=== PATIENT | male | born 1985 | race Caucasian/White ===

== ENCOUNTER 2017-10-13 06:57 | Emergency (ER) | payer SELFPAY ==
[~2017-10-13] VITALS: Ht 185.4 cm; Wt 111.1 kg
--- NOTE | 2017-10-13 07:16 | PHYS DOC ---
Past History Past Medical History: No Pertinent History Past Surgical History: No Surgical History Smoking: Cigarettes Alcohol Use: None Drug Use: None Adult General Chief Complaint Chief Complaint: ANKLE PROBLEM HPI HPI 32-year-old male who was jumping a "10 foot fence". He reports landing on his left lower extremity and injuring it. This occurred last night. He denies any other injuries. He has swelling and pain in the left ankle which is sharp shooting to throbbing moderate intermittent and without alleviating factors. It is associated with swelling. He denies any numbness or tingling in his foot. Review of systems is negative for knee pain or hip pain proximally. He denies any other injuries to his extremities. He denies chest pain abdominal pain head injury or loss of consciousness or neck pain. All other review of systems is negative unless otherwise noted in history of present illness. ED course: 32-year-old male presenting to the emergency department today with left lower ankle pain. X-rays were obtained. Pt is tachycardic likely 2/2 pain. Patient's heart rate came down appropriately with oral Tylenol. X-rays show no acute osseous fracture or dislocation. High-grade ankle sprain. Unfortunately I am unable to do a thorough ankle examination due to swelling and pain at this time. We will wrap the patient's ankle with an Prakash bandage and refer him to his primary care physician and/or an orthopedic surgeon in the next 3-4 days for repeat ankle examination and possible MRI/referral. In the interim we will use rice therapy.The patient has been examined and was not found to have an emergency medical condition. The patient was then discharged home in stable condition. They were to return if their symptoms worsened or if they were concerned for any reason. [id number] discharge instructions and return precautions were given. Patient's questions were answered to their satisfaction. Patient is comfortable with plan. Review of Systems Review of Systems SEE ABOVE. Physical Exam Physical Exam SEE ABOVE General Appearance alert, cooperative, no distress, responsive Head Normocephalic, without obvious abnormality, atraumatic Eyes conjunctivae/corneas clear. PERRL, EOM's intact. Throat no blood or lacerations, normal alignment Neck supple, symmetrical, trachea midline, cervical collar in place Back/Spine symmetric, normal curvature. ROM normal, no abrasions, no tenderness to palpation, no step-offs Lungs clear to auscultation bilaterally Chest Wall normal ribcage without tenderness to palpation, crepitus or emphysema Heart reg rate and regular rhythm, S1, S2 normal, no murmur, click, rub or gallop Abdomen soft, non-tender. Bowel sounds normal. No masses, no organomegaly Pelvic stable Extremities Left leg has no tenderness palpation in the hip or knee with good range of motion in both joints. Positive for ecchymosis and swelling of the ankle. He fires the TA, EH, FHL and Gastrocnemius soleus complex. Normal sensation in the deep peroneal, superficial peroneal, Sural, saphenous, medial and lateral tibial and calcaneal sensory nerves in the foot. 2+ PT and DP pulse. No pain to palpation at the base of the fifth metatarsal. There is not any lacerations or abrasions of the skin. Pulses 2+ and symmetric Skin Skin color, texture, turgor normal. No rashes or lesions Neurologic Grossly normal Eye opening: (4) spontaneous Best motor response: (6) obeys verbal command Best verbal response: (5) oriented and converses Total Rice (E + M + V) = 15 EKG EKG [] Radiology/Procedures Radiology/Procedures [] Course & Med Decision Making Course & Med Decision Making Pertinent Labs and Imaging studies reviewed. (See chart for details) [] Dragon Disclaimer Dragon Disclaimer This electronic medical record was generated, in whole or in part, using a voice recognition dictation system. Departure Departure: Impression: Primary Impression: Left ankle injury Disposition: 01 HOME, SELF-CARE Condition: STABLE Referrals: PCP,NO (PCP) Patient Instructions: Ankle Sprain Additional Instructions: Thank you for allowing us to participate in your care today. Followup with your primary care physician or our orthopedic surgeon in 4-5 days for repeat ankle exam. Call your Primary Doctor tomorrow and inform them of your visit today. If you do not have a primary care provider you can ask for a list of our primary care providers. Return to the emergency department you have any new or concerning findings. Dr. Quintanilla Address: [address], [place] [address] This should be evaluated by the primary care physician and any necessary consulting services for continued management within a few days after discharge. Return to emergency room if you have any new or concerning symptoms including but not limited to fever, chills, nausea, vomiting, intractable pain, any new rashes, chest pain, shortness of air, uncontrolled bleeding, difficulty breathing, and/or vision loss. If at any time, you are having difficulty getting into your primary care doctor or a specialist, return to the emergency department. You may have been prescribed medication or given medication in the emergency department that can change in your level of thinking and ability to operate machinery. These medications include hydrocodone, Ativan, Benadryl. Be sure to check with your pharmacist and ask if the medications you've prescribed can affect your level of consciousness. I recommend not operating heavy machinery or driving while on medication such as these. Scripts Hydrocodone Bit/Acetaminophen (HYDROCODONE-APAP 5-325 ) 1 Each Tablet 1 TAB PO PRN Q6HRS PRN for PAIN, #10 TAB 0 Refills Prov: ARACELIS CROWE MD 10/13/17 ARACELIS CROWE MD October 13, 2017 07:16
--- NOTE | 2017-10-13 07:39 | RAD ---
History: Injury, pain and swelling. Comparison: None. Findings: AP and lateral views of the left tibia and fibula, 4 images. No acute fracture or acute malalignment is identified. Small soft tissue calcification involves the anterior mid lower leg soft tissues. There is diffuse soft tissue swelling of the distal lower leg. AP, lateral, and oblique views of the left ankle. No acute fracture or dislocation is identified. Diffuse ankle soft tissue swelling is seen. Impression: No acute osseous traumatic injury identified in the left tibia and fibula or left ankle. Electronically signed by: Zachary Minaya MD (10/13/2017 7:35 AM) [facility]
--- NOTE | 2017-10-13 07:39 | RAD ---
History: Injury, pain and swelling. Comparison: None. Findings: AP and lateral views of the left tibia and fibula, 4 images. No acute fracture or acute malalignment is identified. Small soft tissue calcification involves the anterior mid lower leg soft tissues. There is diffuse soft tissue swelling of the distal lower leg. AP, lateral, and oblique views of the left ankle. No acute fracture or dislocation is identified. Diffuse ankle soft tissue swelling is seen. Impression: No acute osseous traumatic injury identified in the left tibia and fibula or left ankle. Electronically signed by: Zachary Minaya MD (10/13/2017 7:35 AM) [facility]
[2017-10-13] MEDS ORDERED: ACETAMINOPHEN 325 MG TABLET PO ONE (07:45)
[2017-10-13] MEDS ORDERED: HYDR-2758 PO (07:51)
[2017-10-13 07:53] VITALS: BP 141/101
== END 2017-10-13 07:55 | disposition home or self-care (01) ==
LOC: ER 06:57
DX: S99.912A Unspecified injury of left ankle, initial encounter (principal); X50.9XXA Other and unspecified overexertion or strenuous movements or postures, initial encounter; Y93.39 Activity, other involving climbing, rappelling and jumping off; Y99.8 Other external cause status; Y92.89 Other specified places as the place of occurrence of the external cause
CPT/HCPCS: 73590; 73610; 99284

== ENCOUNTER 2017-10-15 17:27 | Emergency (ER) | payer SELFPAY ==
[~2017-10-15] VITALS: Ht 185.4 cm; Wt 110.2 kg
[~2017-10-15 17:27] MED LIST: HYDR-2758 PO
[2017-10-15 17:41] VITALS: BP 140/84
--- NOTE | 2017-10-15 18:13 | PHYS DOC ---
Past History Past Medical History: No Pertinent History Past Surgical History: No Surgical History Smoking: Cigarettes Alcohol Use: None Drug Use: None Adult General Chief Complaint Chief Complaint: ANKLE PROBLEM HPI HPI 32-year-old male returns to the ED with continued ankle pain. The patient was seen couple days ago in this ED. His x-ray shows negative the time. The patient has had more swelling and significant bruising in the ankle was concerned he should have it reevaluated. It is painful when he puts weight on it. The patient has been wearing the Prakash wrap as directed. He has been taking ibuprofen and icing it. He has tried to keep it elevated when possible. He denies fever or chills. He has no new complaints or injuries. Review of Systems Review of Systems Constitutional: Denies fever or chills [] Eyes: Denies change in visual acuity, redness, or eye pain [] HENT: Denies nasal congestion or sore throat [] Respiratory: Denies cough or shortness of breath [] Cardiovascular: No additional information not addressed in HPI [] GI: Denies abdominal pain, nausea, vomiting, bloody stools or diarrhea [] : Denies dysuria or hematuria [] Musculoskeletal: Pain in the left ankle[] Integument: Denies rash or skin lesions [] Neurologic: Denies headache, focal weakness or sensory changes [] Endocrine: Denies polyuria or polydipsia [] All other systems were reviewed and found to be within normal limits, except as documented in this note. Allergies Allergies Allergies Coded Allergies Type Severity Reaction Last Updated Verified No Known Drug Allergies 10/13/17 No Physical Exam Physical Exam Constitutional: Well developed, well nourished, no acute distress, non-toxic appearance. [] HENT: Normocephalic, atraumatic, bilateral external ears normal, oropharynx moist, no oral exudates, nose normal. [] Eyes: PERRLA, EOMI, conjunctiva normal, no discharge. [] Neck: Normal range of motion, no tenderness, supple, no stridor. [] Cardiovascular:Heart rate regular rhythm, no murmur [] Lungs & Thorax: Bilateral breath sounds clear to auscultation [] Abdomen: Bowel sounds normal, soft, no tenderness, no masses, no pulsatile masses. [] Skin: Warm, dry, no erythema, no rash. [] Back: No tenderness, no CVA tenderness. [] Extremities: Significant swelling and ecchymosis of the left ankle and foot.[] Neurologic: Alert and oriented X 3, normal motor function, normal sensory function, no focal deficits noted. [] Psychologic: Affect normal, judgement normal, mood normal. [] Current Patient Data Vital Signs Vital Signs Date Time Temp Pulse Resp B/P (MAP) Pulse Ox O2 Delivery O2 Flow Rate FiO2 10/15/17 17:41 97.6 106 22 98 Room Air EKG EKG [] Radiology/Procedures Radiology/Procedures The patient's repeat x-rays are again negative for fracture. This is likely a severe sprain.[] Course & Med Decision Making Course & Med Decision Making Pertinent Labs and Imaging studies reviewed. (See chart for details) The patient's x-rays negative. Seems as though this is a severe sprain. He is likely partially or may be completely torn a ligament. I will advise him to seek further evaluation by orthopedics. We will provide an air splint for him today, but I recommend crutches for the next 2-3 days and as much rest as possible. [] Dragon Disclaimer Dragon Disclaimer This electronic medical record was generated, in whole or in part, using a voice recognition dictation system. Departure Departure: Referrals: PCP,PAYTON (PCP) VALERIA RANGEL DO October 15, 2017 18:13
[2017-10-15] MEDS ORDERED: HYDR-971 PO (18:18)
--- NOTE | 2017-10-15 21:37 | RAD ---
Three-view left ankle radiographs 10/15/2017 CLINICAL HISTORY: Increased left ankle pain, bruising and swelling. Injury 2 days ago. AP, lateral and oblique digital radiographs of the left ankle were obtained portably. Comparison study is dated 10/13/2017. The left ankle mortise is intact. Soft tissue swelling surrounds the lateral malleolus of the left ankle. No fracture or dislocation of the left ankle is seen. IMPRESSION: No fracture or dislocation of the left ankle is seen. Electronically signed by: Bashir Gayle MD (10/15/2017 9:33 PM) [facility]
== END 2017-10-15 18:30 | disposition home or self-care (01) ==
LOC: ER 17:27
DX: S93.402A Sprain of unspecified ligament of left ankle, initial encounter (principal); F17.210 Nicotine dependence, cigarettes, uncomplicated; X58.XXXA Exposure to other specified factors, initial encounter; Y93.89 Activity, other specified; Y99.8 Other external cause status; Y92.89 Other specified places as the place of occurrence of the external cause
CPT/HCPCS: 73610; 99284

== ENCOUNTER 2017-11-25 23:32 | Emergency (ER) | payer SELFPAY ==
[~2017-11-25] VITALS: Ht 182.9 cm; Wt 110.5 kg
[~2017-11-25 23:32] MED LIST changes: +HYDR-971 PO
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
[2017-11-26 00:33] VITALS: BP 112/61
[2017-11-26] MEDS ORDERED: TETANUS AND DIPHTHERIA TOX/PF 0.5 ML VIAL. VAX IM ONE (00:45)
[2017-11-26] MEDS ORDERED: HYDROcodon/IBUPROFEN 7.5/200MG 1 TAB TABLET PO ONE (00:45)
== END 2017-11-26 00:45 | disposition home or self-care (01) ==
LOC: ER 23:32
DX: S51.812A Laceration without foreign body of left forearm, initial encounter (principal); F17.210 Nicotine dependence, cigarettes, uncomplicated; W20.8XXA Other cause of strike by thrown, projected or falling object, initial encounter; Y93.89 Activity, other specified; Y99.8 Other external cause status; Y92.89 Other specified places as the place of occurrence of the external cause
CPT/HCPCS: 12001; 99283

== ENCOUNTER 2017-12-06 19:16 | Emergency (ER) | payer SELFPAY ==
[~2017-12-06] VITALS: Ht 185.4 cm; Wt 112.0 kg
[2017-12-06 19:33] VITALS: BP 130/85
--- NOTE | 2017-12-07 07:02 | ED.ADGEN ---
Past History Past Medical History: No Pertinent History Past Surgical History: No Surgical History Smoking: Cigarettes Alcohol Use: None Drug Use: None Adult General Chief Complaint Chief Complaint Suture removal HPI HPI Patient is a 32-year-old male presents for staple removal. [place] were placed in this emergency department 10 days ago. Patient denies complications bleeding , swelling redness or drainage around the wound. [] Review of Systems Review of Systems ROS as per HPI[] All other systems were reviewed and found to be within normal limits, except as documented in this note. Allergies Allergies Allergies Coded Allergies Type Severity Reaction Last Updated Verified No Known Drug Allergies 10/13/17 No Physical Exam Physical Exam Ext, no dehiscence, redness or swelling or drainage. Current Patient Data Vital Signs Vital Signs Date Time Temp Pulse Resp B/P (MAP) Pulse Ox O2 Delivery O2 Flow Rate FiO2 12/06/17 19:33 97.9 99 16 100 Room Air EKG EKG ] Radiology/Procedures Radiology/Procedures [] Course & Med Decision Making Course & Med Decision Making Pertinent Labs and Imaging studies reviewed. (See chart for details) [] Final Impression Final Impression [1. Encounter for staple removal] Dragon Disclaimer Dragon Disclaimer This electronic medical record was generated, in whole or in part, using a voice recognition dictation system. VALERIA DICKERSON DO Dec 07, 2017 07:02
== END 2017-12-06 19:44 | disposition home or self-care (01) ==
LOC: ER 19:16
DX: S59.912D Unspecified injury of left forearm, subsequent encounter (principal); F17.210 Nicotine dependence, cigarettes, uncomplicated; X58.XXXD Exposure to other specified factors, subsequent encounter
CPT/HCPCS: 99281